=== PATIENT | female | born 1955 | race Caucasian/White ===

== ENCOUNTER 2019-11-29 14:58 | Outpatient (CLI) | payer OTHER, SELFPAY ==
--- NOTE | ~2019-11-29 | MM_ITS ---
EXAMINATION: MM screening doe BI w edilma HISTORY: Screening mammogram TECHNIQUE: Craniocaudal and mediolateral oblique 3-D tomosynthesis images were obtained and synthetic 2-D images were generated. CAD analysis was submitted and interpreted. COMPARISON: 08/18/2017, 08/15/2016, 08/06/2015 bilateral digital screening mammogram examinations BREAST PARENCHYMAL COMPOSITION: The breasts are heterogeneously dense, which may obscure small masses . FINDINGS: There is a biopsy marker on the left; history of prior benign breast biopsies. There is no evidence of suspicious mass, calcification, or architectural distortion to suggest malignancy in eith er breast. There has been no suspicious interval change. IMPRESSION: 1. No mammographic evidence of malignancy. 2. Recommend routine screening mammography in one year. BI-RADS Category 1: Negative Reviewed, dictated and finalized at location A.
== END 2019-11-29 14:59 | disposition home or self-care (01) ==
LOC: ANHIMG 15:01
PROVIDERS: PCP Family Medicine; Visit Provider Family Medicine
DX: Z12.31 Encounter for screening mammogram for malignant neoplasm of breast (principal)
CPT/HCPCS: 77063; 77067

== ENCOUNTER 2020-02-06 13:49 | Outpatient (CLI) | payer OTHER, SELFPAY ==
--- NOTE | ~2020-02-06 | DEXA_ITS ---
Bone Density Report Name: Rocio Partida Age: 65 Sex: Female Ethnicity: White Date of : 1955 Indication: postmenopausal osteoporosis; height loss; prior fracture; Referring Provider: SHWETHA GONZALEZ Study: Bone densitometry was performed. Exam Date: February 06, 2020 Accession number: [id number] Bone Density: Region BMD T-score Z-score Classification AP Spine (L1-L4) 0.774 -2.5 -0.8 Osteoporosis Femoral Neck (Left) 0.508 -3.1 -1.6 Osteoporosis Total Hip (Left) 0.593 -2.9 -1.7 Osteoporosis Total Hip Bilateral Avg 0.603 -2.8 -1.6 Osteoporosis Femoral Neck (Right) 0.526 -2.9 -1.5 Osteoporosis Total Hip (Right) 0.612 -2.7 -1.5 Osteoporosis World Health Organization criteria for BMD impression classify patients as: Normal (T-score at or above -1.0), Osteopenia (T-score between -1.0 and -2.5), or Osteoporosis (T-score at or below -2.5). 10-year Fracture Risk: FRAX not reported because: Some T-score for Spine Total or Hip Total or Femoral Neck at or below -2.5 Previous Exams: Region Exam Age BMD T-score BMD Change BMD Change Date g/cm2 vs Baseline vs Previous AP Spine(L1-L4) 02/06/2020 65 0.774 -2.5 -0.052(-6.3%)# -0.020(-2.5%) 12/22/2017 62 0.794 -2.3 -0.032(-3.8%)# -0.017(-2.1%) 11/27/2015 60 0.811 -2.1 -0.015(-1.8%)# 0.008(1.0%) 11/23/2013 58 0.803 -2.2 -0.023(-2.8%)# -0.004(-0.5%)# 11/13/2011 56 0.806 -2.2 -0.019(-2.3%)# -0.019(-2.3%)# 11/06/2009 54 0.825 -2.0 Total Hip(Left) 02/06/2020 65 0.593 -2.9 -0.030(-4.8%)# -0.060(-9.2%)* 12/22/2017 62 0.654 -2.4 0.031(4.9%)# 0.017(2.7%) 11/27/2015 60 0.636 -2.5 0.013(2.1%)# 0.010(1.6%) 11/23/2013 58 0.626 -2.6 0.003(0.6%)# -0.039(-5.8%)# 11/13/2011 56 0.665 -2.3 0.042(6.8%)# 0.042(6.8%)# 11/06/2009 54 0.623 -2.6 Total Hip(Right) 02/06/2020 65 0.612 -2.7 -0.008(-1.2%)# -0.021(-3.3%) 12/22/2017 62 0.633 -2.5 0.013(2.1%)# -0.016(-2.5%) 11/27/2015 60 0.649 -2.4 0.029(4.7%)# -0.002(-0.2%) 11/23/2013 58 0.650 -2.4 0.031(5.0%)# -0.007(-1.1%)# 11/13/2011 56 0.657 -2.3 0.038(6.1%)# 0.038(6.1%)# 11/06/2009 54 0.619 -2.6 *Denotes significance at 95% confidence level, LSC for AP Spine = 0.022 g/cm2, LSC for Total Hip = 0.027 g/cm2 Clinical Information Provided by Patient: Has had a low trauma fracture Has used the following medications: Vitamin D, Calcium Patient maximum height was 65 Menopause Age: 46 Onset of menses at age 13 N
== END 2020-02-06 13:50 | disposition home or self-care (01) ==
LOC: ANHIMG 13:51
PROVIDERS: PCP Family Medicine; Visit Provider Family Medicine
DX: M81.0 Age-related osteoporosis without current pathological fracture (principal)
CPT/HCPCS: 77080

== ENCOUNTER 2021-01-10 14:59 | Outpatient (CLI) | payer OTHER, SELFPAY ==
--- NOTE | ~2021-01-10 | MM_ITS ---
EXAMINATION: MM screening doe BI w edilma HISTORY: Screening mammogram TECHNIQUE: Craniocaudal and mediolateral oblique 3-D tomosynthesis images were obtained and synthetic 2-D images were generated. CAD analysis was submitted and interpreted. COMPARISON: 11/29/2019, 08/18/2017, 08/15/2016 bilateral digital screening mammogram examinations BREAST PARENCHYMAL COMPOSITION: The breasts are heterogeneously dense, which may obscure small masses . FINDINGS: There is a biopsy marker on the left; history of prior benign breast biopsy. There is no ev idence of suspicious mass, calcification, or architectural distortion to suggest malignancy in either breast. There has been no suspicious interval change. IMPRESSION: 1. No mammographic evidence of malignancy. 2. Recommend routine screening mammography in one year. BI-RADS Category 1: Negative Reviewed, dictated and finalized at location A.
== END 2021-01-10 15:00 | disposition home or self-care (01) ==
LOC: ANHIMG 15:01
PROVIDERS: PCP Family Medicine; Visit Provider Family Medicine
DX: Z12.31 Encounter for screening mammogram for malignant neoplasm of breast (principal)
CPT/HCPCS: 77063; 77067

== ENCOUNTER 2021-02-13 07:59 | Outpatient (RCR) | payer MEDICARE, SELFPAY ==
[2021-02-13] MEDS: diphenhydrAMINE HCl CAP 25 MG CAPSULE PO (08:40)
[2021-02-13] MEDS: FAMOTIDINE 20 MG TABLET PO (08:40)
[2021-02-13] MEDS: ACETAMINOPHEN 325 MG TABLET 650 MG PO (08:40)
[2021-02-13 08:52] VITALS: BP 116/81; PULSE 94; RESP 20; TEMP 37.7; O2SAT 97
[2021-02-13 10:08] VITALS: BP 116/78
--- NOTE | 2021-02-14 08:40 | PC.NURSE ---
Attempted to call patient and she did not answer her phone, message left for her to return the call.
== END 2021-02-13 17:00 ==
LOC: AMCINF 07:59
PROVIDERS: PCP Family Medicine; Referring Provider Family Medicine; Visit Provider Internal Medicine Hematology & Oncology
DX: U07.1 COVID-19 (principal); I10 Essential (primary) hypertension
CPT/HCPCS: A9270; M0243; Q0243

== ENCOUNTER 2021-05-15 13:44 | Outpatient (CLI) | payer MEDICARE, SELFPAY | END 2021-05-15 13:45 | disposition home or self-care (01) | PROVIDERS: PCP Family Medicine; Visit Provider Internal Medicine Cardiovascular Disease | DX: R00.2 Palpitations (principal) | CPT/HCPCS: 36415; 84443 ==

== ENCOUNTER 2021-06-24 14:06 | Outpatient (CLI) | payer MEDICARE, SELFPAY ==
--- NOTE | ~2021-06-24 | US_ITS ---
EXAMINATION: US arterial ankle brachial ind DATE: 06/24/2021 14:47 INDICATION: Asymptomatic superficial varicose vein of right lower extremity. TECHNIQUE: Segmental pressures and plethysmographic and Doppler waveforms of the brachial and lower e xtremity arteries were obtained. COMPARISON: None. FINDINGS: Right and left brachial artery pressures of 106 mm Hg and 117 mm Hg, respectively, are concordant (no rmal difference <= 30 mmHg). The right ankle-brachial index (CORWIN) is 1.23 (normal >= 0.9-1.0). The right great toe-brachial index (TBI) is 0.74 (normal >= 0.65). Arterial Doppler waveforms are at least biphasic at the ankle. The left CORWIN is 1.11. The left TBI is 0.79. Arterial Doppler waveforms are triphasic at the ankle. IMPRESSION: 1. No significant arterial occlusive disease. Reviewed, dictated and finalized at location A.
== END 2021-06-24 14:07 | disposition home or self-care (01) ==
PROVIDERS: PCP Family Medicine; Visit Provider Internal Medicine Cardiovascular Disease
DX: U07.1 COVID-19 (principal); R20.2 Paresthesia of skin; R00.2 Palpitations; I10 Essential (primary) hypertension; I73.9 Peripheral vascular disease, unspecified; I83.91 Asymptomatic varicose veins of right lower extremity; R09.89 Other specified symptoms and signs involving the circulatory and respiratory systems
CPT/HCPCS: 93922

== ENCOUNTER 2021-10-23 09:03 | Outpatient (CLI) | payer MEDICARE, SELFPAY ==
--- NOTE | ~2021-10-23 | US_ITS ---
US venous doppler LE DATE: 10/23/2021 14:44 INDICATION: Right lower extremity varicose veins, pain TECHNIQUE: Real-time and color flow imaging and Doppler analysis of the veins of the lower extremitie s COMPARISON: None FINDINGS: Right lower extremity: There is flow and compression of the lesser and greater saphenous veins bilate rally. Right greater saphenous vein: Proximal: 3.9 mm vein diameter, no reflux Mid: 3.0 mm vein diameter; 1.7 seconds reflux duration Distal colon 3.7 mm diameter, 1.9 seconds reflux duration Right lesser saphenous vein: Proximal: 4.4 mm vein diameter, 1.8 seconds reflux duration Distal colon 2.3 mm vein diameter, 1.4 seconds reflux duration Left lower extremity: Greater saphenous vein: Proximal: 5.3 mm vein diameter, 0.83 seconds reflux duration Mid: 3.2 mm vein diameter, 0.72 seconds reflux duration Distal colon 2.6 mm vein diameter, 1.6 seconds reflux duration Left lesser saphenous vein: Proximal: 4.5 mm vein diameter, 0.9 seconds reflux duration Distal: 2.4 mm vein diameter, 1.75 seconds reflux duration IMPRESSION: No evidence of thrombosis of left or right greater or lesser saphenous veins Vein diameter and reflux duration as indicated above Reviewed, dictated and finalized at Location A. Reviewed, dictated and finalized at location B. IMPRESSION: No evidence of thrombosis of left or right greater or lesser saphen ous veins Vein diameter and reflux duration as indicated above
== END 2021-10-23 09:04 | disposition home or self-care (01) ==
PROVIDERS: PCP Family Medicine; Visit Provider Nurse Practitioner Adult Health
DX: I83.811 Varicose veins of right lower extremity with pain (principal)
CPT/HCPCS: 93970

== ENCOUNTER 2022-04-10 00:55 | Day surgery (SDC) | payer MEDICARE, SELFPAY ==
[2022-03-27 12:44] VITALS: BMI 18.9
[2022-04-10 10:39] VITALS: BP 125/89; PULSE 75; RESP 16; TEMP 36.4; O2SAT 98; BMI 19.0
--- NOTE | 2022-04-10 10:46 | PM.HPGS ---
History of Present Illness History of Present Illness Consent: Risks, benefits, and alternatives have been discussed and questions answered. Patient agrees to proceed with procedure. Chief complaint: neoplasm screening Narrative: Rocio Partida is a 67 year old female Presents for screening colonoscopy. Patient's current weight appetite and bowel movements are normal. Patient denies abdominal pain. She has had no bleeding. Family history is noncontributory previous colonoscopy for screening 2010 was unremarkable. Review of Systems Review of Systems: Review of systems noncontributory. [facility] Past Medical History Medical History (Updated 04/10/22 @ 10:47 by Pb Weinstein MD) Abnormal laboratory test result Essential (primary) hypertension Generalized anxiety disorder Hyperlipidemia, unspecified Insomnia, unspecified Major depressive disorder, recurrent, moderate Neutropenia, unspecified Osteoporosis Pure hypercholesterolemia, unspecified Surgical History Surgical History (Updated 03/24/22 @ 10:17 by Soniya Cisse [facility]) H/O laparoscopy Social History Social History Smoking status: Never smoker Living arrangements: with family Spiritual care concerns: No Meds Home Medications and Allergies Home Medications Medication Instructions Recorded Confirmed Type calcium citrate 250 mg 1,200 tablet PO DAILY 03/24/22 04/10/22 History calcium-vitamin D3 5 mcg (200 unit) tablet calcium carbonate 600 mg-vitamin 2 tablet PO DAILY 03/27/22 04/10/22 History D3 5 mcg (200 unit) tablet glucosamine sulf dipot 1 cap PO DAILY 03/27/22 04/10/22 History chlr,msm,chond 550 mg-C 30 mg-sanjay 1 mg capsule (Glucosamine Chondroitin) metoprolol succinate 25 mg 37.5 mg PO DAILY 03/27/22 04/10/22 History tablet,extended release 24 hr multivitamin with minerals-folic 1 tablet PO DAILY 03/27/22 04/10/22 History acid 0.4 mg tablet sertraline 50 mg tablet 75 mg PO DAILY 03/27/22 04/10/22 History Allergies Allergy/AdvReac Type Severity Reaction Status Date / Time No Known Allergies Allergy Verified 04/10/22 10:38 Vital Signs Vital Signs - 24 hr 04/10/22 10:39 Temperature 97.6 F Pulse Rate 75 Respiratory Rate 16 Blood Pressure 125/89 Pulse Oximetry 98 Oxygen Delivery Room Air Exam Narrative: Physical exam reveals patient to be alert. Vital signs stable. HEENT exam is unremarkable. Patient is anicteric. Lungs are clear to auscultation and percussion. Heart is without murmur or extra sounds. Abdomen bowel sounds are present soft nontender with no organomegaly. Digital external rectal exam is normal. Assessment and Plan Assessment and plan (1) Encounter for screening colonoscopy: Code(s): Z12.11 - Encounter for screening for malignant neoplasm of colon Status: Acute Assessment and Plan: Patient presents for screening colonoscopy. She appears to be at average risk for colon polyps. Further recommendations may be given after endoscopy.
[2022-04-10] MEDS: LACTATED RINGERS 1,000 ML 150 ML IV CONT (10:50)
--- NOTE | 2022-04-10 11:17 | P.PNAN_ITS ---
Anes - Initial Pre Proc Eval Procedure: Operation Date: 04/10/22 11:30 Proposed Procedures p Screening Colonoscopy - Pb Weinstein MD Date/Time: 04/10/22 11:17 Surgeon: Pb Weinstein MD Pre Op Diagnosis: neoplasm screening Patient Data Age: 67 Gender: F Height: 1.63 m Weight: 50.2 kg Last Vital Signs Temp 97.6 F 04/10/22 10:39 Pulse 75 04/10/22 10:39 Resp 16 04/10/22 10:39 BP 125/89 04/10/22 10:39 Pulse Ox 98 04/10/22 10:39 O2 Del Method Room Air 04/10/22 10:39 Allergies Allergy/AdvReac Type Severity Reaction Status Date / Time No Known Allergies Allergy Verified 04/10/22 10:38 Home Medications Medication Instructions Recorded Confirmed Type calcium citrate 250 mg 1,200 tablet PO DAILY 03/24/22 04/10/22 History calcium-vitamin D3 5 mcg (200 unit) tablet calcium carbonate 600 mg-vitamin 2 tablet PO DAILY 03/27/22 04/10/22 History D3 5 mcg (200 unit) tablet glucosamine sulf dipot 1 cap PO DAILY 03/27/22 04/10/22 History chlr,msm,chond 550 mg-C 30 mg-sanjay 1 mg capsule (Glucosamine Chondroitin) metoprolol succinate 25 mg 37.5 mg PO DAILY 03/27/22 04/10/22 History tablet,extended release 24 hr multivitamin with minerals-folic 1 tablet PO DAILY 03/27/22 04/10/22 History acid 0.4 mg tablet sertraline 50 mg tablet 75 mg PO DAILY 03/27/22 04/10/22 History Patient hx anesthesia problems: none Family hx anesthesia problems: none Results Review: All pre-operative results and documents have been reviewed as part of the pre- operative evaluation. [facility] Past Medical History Medical History (Updated 04/10/22 @ 10:47 by Pb Weinstein MD) Abnormal laboratory test result Essential (primary) hypertension Generalized anxiety disorder Hyperlipidemia, unspecified Insomnia, unspecified Major depressive disorder, recurrent, moderate Neutropenia, unspecified Osteoporosis Pure hypercholesterolemia, unspecified Surgical History Surgical History (Updated 03/24/22 @ 10:17 by Soniya Cisse [facility]) H/O laparoscopy Social History Social History Smoking status: Never smoker Living arrangements: with family Spiritual care concerns: No Anes - Eval Final PreProcedure Day of Procedure 04/10/22 11:17 Patient weight: normal Heart: regular rate and rhythm Lungs: clear to auscultation Airway: Mallampati scale class II Neurological: alert and oriented Last oral intake: >/= 8 hours ASA classification: III Emergent: no Anesthetic plan: proceed Anesthesia type and monitoring: general GIVS and standard monitoring Results Review: All pre-operative results and documents have been reviewed as part of the pre- operative evaluation. Informed Consent: The patient's anesthetic plan and its attendant risks and benefits were discussed with the patient/family/POA. Questions were solicited and answers provided to the satisfaction of the patient/family/POA.
[2022-04-10] MEDS: SIMETHICONE ORAL SUSPENSION 20 MG/0.3 ML 30 ML BOTTLE 0.6 ML IRRIGATION (11:23)
[2022-04-10 11:30] VITALS: BP 119/75; PULSE 76; RESP 18; O2SAT 99
[2022-04-10 11:40] VITALS: BP 116/80; PULSE 75; RESP 18; O2SAT 100
[2022-04-10 11:50] VITALS: BP 113/85; PULSE 64; RESP 20; O2SAT 98
== END 2022-04-10 11:54 | disposition home or self-care (01) ==
PROVIDERS: PCP Family Medicine; Visit Provider Internal Medicine Gastroenterology
PROC: 0DJD8ZZ Inspection of Lower Intestinal Tract, Via Natural or Artificial Opening Endoscopic (ICD-10-PCS; CPT 45378; principal; 2022-04-10 11:30)
DX: Z12.11 Encounter for screening for malignant neoplasm of colon (principal); K64.8 Other hemorrhoids; I10 Essential (primary) hypertension; F33.1 Major depressive disorder, recurrent, moderate; F41.1 Generalized anxiety disorder; E78.00 Pure hypercholesterolemia, unspecified; M81.0 Age-related osteoporosis without current pathological fracture
CPT/HCPCS: G0121; J2704; J7120

== ENCOUNTER 2022-05-22 12:45 | Outpatient (CLI) | payer MEDICARE, SELFPAY ==
--- NOTE | ~2022-05-22 | US_ITS ---
US venous doppler LE DATE: 05/22/2022 13:42 INDICATION: Asymptomatic varicose veins TECHNIQUE: Real-time and color flow imaging and Doppler analysis of the deep veins of the right lower extremity COMPARISON: None FINDINGS: The greater saphenous vein is patent. There is spontaneous and phasic flow and normal augme ntation and color flow signal and normal compression of the deep veins of the right lower extremity. IMPRESSION: No evidence of deep venous thrombosis of the right lower extremity Reviewed, dictated and finalized at Location A. Reviewed, dictated and finalized at location L. ECTIONS LIEUTENANT
== END 2022-05-22 12:46 | disposition home or self-care (01) ==
PROVIDERS: PCP Family Medicine; Visit Provider Internal Medicine Cardiovascular Disease
DX: I83.91 Asymptomatic varicose veins of right lower extremity (principal); I83.811 Varicose veins of right lower extremity with pain
CPT/HCPCS: 93971

== ENCOUNTER 2022-06-09 14:56 | Outpatient (CLI) | payer MEDICARE, SELFPAY ==
--- NOTE | ~2022-06-09 | DEXA_ITS ---
Bone Density Report Name: AL SUAREZ Age: 67 Sex: Female Ethnicity: White Date of : 1955 Indication: postmenopausal osteoporosis; prior fracture; Referring Provider: SHWETHA GONZALEZ Study: Bone densitometry was performed. Exam Date: June 09, 2022 Accession number: [id number] Bone Density: Region BMD T-score Z-score Classification AP Spine(L1-L4) 0.799 -2.3 -0.4 Osteopenia Femoral Neck (Left) 0.542 -2.8 -1.2 Osteoporosis Total Hip (Left) 0.663 -2.3 -1.0 Osteopenia Femoral Neck (Right) 0.588 -2.3 -0.8 Osteopenia Total Hip (Right) 0.667 -2.3 -1.0 Osteopenia Total Hip Mean 0.665 -2.3 -1.0 Osteopenia World Health Organization criteria for BMD impression classify patients as: Normal (T-score at or above -1.0), Osteopenia (T-score between -1.0 and -2.5), or Osteoporosis (T-score at or below -2.5). 10-year Fracture Risk: FRAX not reported because: Some T-score for Spine Total or Hip Total or Femoral Neck at or below -2.5 Previous Exams: Region Exam Age BMD T-score BMD Change BMD Change Date g/cm2 vs Baseline vs Previous AP Spine (L1-L4) 06/09/2022 67 0.799 -2.3 -0.004 (-0.5%) 0.025 (3.3%)* 02/06/2020 65 0.774 -2.5 -0.029 (-3.6%) -0.020 (-2.5%) 12/22/2017 62 0.794 -2.3 -0.009 (-1.1%) -0.017 (-2.1%) 11/27/2015 60 0.811 -2.1 0.008 (1.0%) 0.008 (1.0%) 11/23/2013 58 0.803 -2.2 Total Hip(Left) 06/09/2022 67 0.663 -2.3 0.037 (5.9%)* 0.070 (11.8%)* 02/06/2020 65 0.593 -2.9 -0.033 (-5.3%) -0.060 (-9.2%) 12/22/2017 62 0.654 -2.4 0.027 (4.3%) 0.017 (2.7%) 11/27/2015 60 0.636 -2.5 0.010 (1.6%) 0.010 (1.6%) 11/23/2013 58 0.626 -2.6 Total Hip(Right) 06/09/2022 67 0.667 -2.3 0.017 (2.6%) 0.055 (9.0%)* 02/06/2020 65 0.612 -2.7 -0.038 (-5.9%) -0.021 (-3.3%) 12/22/2017 62 0.633 -2.5 -0.018 (-2.7%) -0.016 (-2.5%) 11/27/2015 60 0.649 -2.4 -0.002 (-0.2%) -0.002 (-0.2%) 11/23/2013 58 0.650 -2.4 *Denotes significance at 95% confidence level, LSC for AP Spine = 0.022 g/cm2, LSC for Total Hip = 0.027 g/cm2 Clinical Information Provided by Patient: Has had a low trauma fracture Has used the following medications: Vitamin D, Calcium Patient maximum height was 64 Menopause Age: 46 Onset of menses at age 13 Number of children 2 Impression: The patient has established osteoporosis, based on the Left Femoral Neck T-score and the existence of a p
== END 2022-06-09 14:57 | disposition home or self-care (01) ==
PROVIDERS: PCP Family Medicine; Visit Provider Family Medicine
DX: M81.0 Age-related osteoporosis without current pathological fracture (principal); M85.88 Other specified disorders of bone density and structure, other site; M85.852 Other specified disorders of bone density and structure, left thigh; M85.851 Other specified disorders of bone density and structure, right thigh
CPT/HCPCS: 77080

== ENCOUNTER 2022-06-19 10:42 | Outpatient (CLI) | payer MEDICARE, SELFPAY ==
[2022-06-19 11:36] LABS: Anion Gap 4 mmol/L (8-16); Blood Urea Nitrogen 14 mg/dL (7-17); Calcium 8.8 mg/dL (8.4-10.2); Carbon Dioxide 32 mmol/L (22-30); Chloride 99 mmol/L (98-107); Cholesterol 249 mg/dL (0-200); Estimated Glomerular Filt Rate > 60; Glucose 89 mg/dL (65-110); HDL Direct 75 mg/dL; Potassium 4.2 mmol/L (3.4-5.0); Sodium 135 mmol/L (137-145); Triglycerides 79 mg/dL (<150)
[2022-06-19 11:46] LABS: LDL Cholesterol Direct 126 mg/dL
[2022-06-24 07:46] LABS: Lipoprotein A 129 nmol/L (<75)
== END 2022-06-19 10:43 | disposition home or self-care (01) ==
PROVIDERS: PCP Family Medicine; Visit Provider Nurse Practitioner Adult Health
DX: E78.2 Mixed hyperlipidemia (principal)
CPT/HCPCS: 36415; 80048; 80061; 83695

== ENCOUNTER 2023-07-04 16:59 | Emergency (ER) | payer MEDICARE, SELFPAY ==
--- NOTE | 2023-07-04 17:03 | ED.SKABFB ---
HPI - Skin/Abscess/Foreign Bdy General Chief complaint: Skin/Abscess/Foreign Body Stated complaint: Irritation and Swelling Forehead Lt Side Time Seen by Provider: 07/04/23 17:03 Source: patient Mode of arrival: ambulatory Limitations: no limitations History of Present Illness HPI narrative: 68 yo F presents with concern for spider bite to forehead. Woke up two days ago with a red bump. Staes bump was sore. Bigger the next day with some swelling to L eyebrown and L upper eyelid. Today had two scabs to center for red bump that she thought were maybe a spider bite. Has been doing some online reading and is concernd for brown recluse. Afebrile. All systems reviewed and negative except as noted above. Related Data Home Medications Medication Instructions Recorded Confirmed calcium citrate 250 mg 1,200 tablet PO DAILY 03/24/22 07/04/23 calcium-vitamin D3 5 mcg (200 unit) tablet glucosamine sulf dipot 1 cap PO DAILY 03/27/22 07/04/23 chlr,msm,chond 550 mg-C 30 mg-sanjay 1 mg capsule (Glucosamine Chondroitin) multivitamin with minerals-folic 1 tablet PO DAILY 03/27/22 07/04/23 acid 0.4 mg tablet omega 4-bqk-lbh-fish oil 300 1 cap PO DAILY 05/08/22 07/04/23 mg-1,000 mg capsule (Fish Oil) Allergies Allergy/AdvReac Type Severity Reaction Status Date / Time No Known Allergies Allergy Verified 07/04/23 17:04 Review of Systems Review of Systems: CONSTITUTIONAL: Denies fever, chills, or sweats. EYES: Denies visual changes, redness, or discharge. ENT: Denies rhinorrhea, congestion, sore throat, or otalgia. CARDIOVASCULAR: Denies chest pain, palpitations, or edema. RESPIRATORY: Denies cough or dyspnea. GASTROINTESTINAL: Denies abdominal pain, nausea, vomiting, or diarrhea. GENITOURINARY: Denies dysuria or hematuria. SKIN: Denies rash. reports red bump to L side of forehead with itching and soreness. MUSCULOSKELETAL: Denies back pain, joint pain, or myalgia. NEUROLOGIC: Denies headache, numbness, or weakness. PSYCHIATRIC: Denies anxiety or depression. All other systems reviewed are negative, except as documented in HPI. PMFSH Past Medical History Medical History (Updated 07/04/23 @ 17:20 by Brunilda Cohen NP) Essential (primary) hypertension Generalized anxiety disorder Hypercholesteremia Insomnia, unspecified Major depressive disorder, recurrent, moderate Neutropenia, unspecified Osteoporosis Surgical History Surgical History H/O laparoscopy Social History Social History Smoking status: Never smoker Second hand tobacco smoke exposure: No Alcohol intake: never Substance use: never Substance use type: does not use Lack of Transportation: No Lack of Food: Never True Current Housing: I Have Housing Concerned About Future Housing: No Difficulty Paying Gas/Electric Bills: No Difficulty Paying for Meds: No Currently Unemployed: YES Living arrangements: with family Occupation/Education: retired Gender identity (if verbalized by the patient): Female Sexual Orientation (if Verbalized by the Patient): Straight or Heterosexual Spiritual care concerns: No Comments At time of signature, agree with nursing past medical, surgical, social and family history. There is no relevant family history pertinent to the presenting complaint. Exam Narrative: GENERAL: This is a well-nourished, well-developed patient, in no apparent distress. HEAD: normocephalic, atraumatic. EYES: PERRL. Sclera clear/white. Vision is grossly intact. EARS: External ears normal NOSE: External nose normal NECK: Neck supple, non-tender without lymphadenopathy, masses or thyromegaly. CARDIOVASCULAR: Regular rate and rhythm without murmurs, gallops, or rubs. RESPIRATORY: Clear to auscultation. Breath sounds equal bilaterally. No wheezes, rales, or rhonchi. SKIN: warm, Dry, intact with no suspicious lesions or rash, good texture and turgor. 2 x1cm insect bite to L side of forehead. erythematous and swollen with scab to center. mild swelling. no fluctuance. no necrosis. NEURO: awake, alert, and oriented to person, place and time. There were no obvious focal neurologic abnormalities. EXTREMITIES: No joint tenderness, effusion, or edema noted. Course Course Level of Care: Express Care Visit Vital Signs Vital signs: Vital Signs Temperature 36.6 C 07/04/23 17:08 Pulse Rate 83 07/04/23 17:08 Respiratory Rate 16 04/20/24 17:08 Blood Pressure 162/86 H 07/04/23 17:08 Pulse Oximetry 99 07/04/23 17:08 Oxygen Delivery Room Air 07/04/23 17:08 Temperature 36.6 C 07/04/23 17:08 Pulse Rate 83 07/04/23 17:08 Respiratory Rate 16 07/04/23 17:08 Blood Pressure 162/86 H 07/04/23 17:08 Pulse Oximetry 99 07/04/23 17:08 Oxygen Delivery Room Air 07/04/23 17:08 Reviewed MDM - Skin/Abscess/Foreign Bdy MDM Narrative Medical decision making narrative: Patient is aware of diagnosis, understands and agrees to treatment plan. Anticipatory guidance given. Patient agrees to follow-up as directed and is aware of reasons to seek care at the emergency department. Portions of this record may have been created with voice recognition software pt well appearing. nontoxic. no necrosis or fluctuance. Will treat with abx. Discharge Plan Discharge Clinical Impression: Insect bite of forehead Qualifiers: Encounter type: initial encounter Qualified Code(s): S00.86XA - Insect bite (nonvenomous) of other part of head, initial encounter Patient Disposition: Home, Self-Care Condition: Stable Instructions: Antibiotic Form, Insect Bite or Sting (ED) Additional Instructions: Take antibiotic as prescribed until gone. Take tylenol or ibuprofen as needed for pain. Take zyrtec or benadryl as needed for itching. Do not apply steroid cream to the face. Go to the ER if you have fever, worsening of redness, swelling or pain. Prescriptions: New doxycycline hyclate 100 mg capsule 100 mg PO BID 7 Days Qty: 14 0RF No Action omega 3-bxy-skp-fish oil [Fish Oil] 300-1,000 mg capsule 1 cap PO DAILY Glucosamine Chondroitin 550-30-1 mg Capsule 1 cap PO DAILY multivit with min-folic acid [Adult One Daily Multivitamin] 0.4 mg Tablet 1 tablet PO DAILY calcium citrate-vitamin D3 250 mg-5 mcg (200 unit) tablet 1,200 tablet PO DAILY Follow-up/Referrals: Layo Gonzalez MD [Primary Care Provider] - Time of Disposition: 17:21
[2023-07-04 17:08] VITALS: BP 162/86; PULSE 83; RESP 16; TEMP 36.6; O2SAT 99
== END 2023-07-04 17:27 | disposition home or self-care (01) ==
PROVIDERS: Emergency Provider Nurse Practitioner Family; PCP Family Medicine
DX: S00.86XA Insect bite (nonvenomous) of other part of head, initial encounter (principal); W57.XXXA Bitten or stung by nonvenomous insect and other nonvenomous arthropods, initial encounter; I10 Essential (primary) hypertension; E78.00 Pure hypercholesterolemia, unspecified; M81.0 Age-related osteoporosis without current pathological fracture
CPT/HCPCS: 99213; G0463

== ENCOUNTER 2023-07-05 10:43 | Emergency (ER) | payer MEDICARE, SELFPAY ==
[2023-07-05 10:46] VITALS: BP 149/104; PULSE 83; RESP 20; TEMP 36.6; O2SAT 100
[2023-07-05 12:05] VITALS: BP 134/82; PULSE 78; RESP 16; TEMP 36.9; O2SAT 99
--- NOTE | 2023-07-05 12:58 | ED.GENADULT ---
HPI - General Adult General Chief complaint: Skin/Abscess/Foreign Body Stated complaint: lump on forehead with eye pain Time Seen by Provider: 07/05/23 11:13 History of Present Illness HPI narrative: Rocio Partida is a 68 y/o female who presents today with reports of having a rash that started above her left eye about thursday/thursday she went to an and was started on antibiotic but rash has now gone to her upper left eye lid and to the corner of her left eye. She states area is painful and a little itchy/ denies fever/chills denies vision changes. Related Data Home Medications Medication Instructions Recorded Confirmed calcium citrate 250 mg 1,200 tablet PO DAILY 03/24/22 07/04/23 calcium-vitamin D3 5 mcg (200 unit) tablet glucosamine sulf dipot 1 cap PO DAILY 03/27/22 07/04/23 chlr,msm,chond 550 mg-C 30 mg-sanjay 1 mg capsule (Glucosamine Chondroitin) multivitamin with minerals-folic 1 tablet PO DAILY 03/27/22 07/04/23 acid 0.4 mg tablet omega 7-crt-yaw-fish oil 300 1 cap PO DAILY 05/08/22 07/04/23 mg-1,000 mg capsule (Fish Oil) Allergies Allergy/AdvReac Type Severity Reaction Status Date / Time No Known Allergies Allergy Verified 07/05/23 10:51 Review of Systems Review of Systems: All systems reviewed & are unremarkable except as noted in HPI and below PMFSH Past Medical History Medical History Essential (primary) hypertension Generalized anxiety disorder Hypercholesteremia Insomnia, unspecified Major depressive disorder, recurrent, moderate Neutropenia, unspecified Osteoporosis Surgical History Surgical History H/O laparoscopy Social History Social History Smoking status: Never smoker Second hand tobacco smoke exposure: No Alcohol intake: never Substance use: never Substance use type: does not use Lack of Transportation: No Lack of Food: Never True Current Housing: I Have Housing Concerned About Future Housing: No Difficulty Paying Gas/Electric Bills: No Difficulty Paying for Meds: No Currently Unemployed: YES Living arrangements: with family Occupation/Education: retired Gender identity (if verbalized by the patient): Female Sexual Orientation (if Verbalized by the Patient): Straight or Heterosexual Spiritual care concerns: No Exam Narrative: GENERAL: Well-appearing, well-nourished, and in no acute distress. HEAD: Normocephalic, atraumatic. EYES: PERRLA and EOMI. Left eye slight injected wtih pink to the corner of her left side of slcera ENT: Nares clear, no rhinorrhea or epistaxis. Mucous membranes moist. Oropharynx without tonsillar hypertrophy exudate or other lesions. TMs non bulging pearly farfan NECK: Supple. No adenopathy or masses. No carotid bruits or JVD CHEST: Clear to auscultation. No respiratory distress. No wheezes rales or rhonchi HEART: Regular rate and rhythm. No murmur heard. Normal peripheral pulses. ABDOMEN: Soft, nontender, nondistended, normal active bowel sounds. EXTREMITIES: Normal range of motion. No edema. SKIN: Warm, dry, no rash. NEURO: No focal deficits. Alert and oriented x3. PSYCH: Normal mood and affect. Course Vital Signs Vital signs: Vital Signs Temperature 36.6 C 07/05/23 10:46 Pulse Rate 83 07/05/23 10:46 Respiratory Rate 20 07/05/23 10:46 Blood Pressure 149/104 H 07/05/23 10:46 Pulse Oximetry 100 07/05/23 10:46 Oxygen Delivery Room Air 07/05/23 10:46 Temperature 36.6 C 07/05/23 10:46 Pulse Rate 83 07/05/23 10:46 Respiratory Rate 20 07/05/23 10:46 Blood Pressure 149/104 H 07/05/23 10:46 Pulse Oximetry 100 07/05/23 10:46 Oxygen Delivery Room Air 07/05/23 10:46 Medical Decision Making MDM Narrative Medical decision making narrative: with pt's presentation of the painful rash un
[2023-07-05] MEDS: valACYclovir HCL 500 MG TABLET 1000 MG PO (13:29)
[2023-07-05 13:35] VITALS: BP 122/71; PULSE 71; RESP 16; O2SAT 100
== END 2023-07-05 13:36 | disposition home or self-care (01) ==
PROVIDERS: Emergency Provider Nurse Practitioner Family; PCP Family Medicine
DX: B02.31 Zoster conjunctivitis (principal); I10 Essential (primary) hypertension; E78.00 Pure hypercholesterolemia, unspecified; M81.0 Age-related osteoporosis without current pathological fracture
CPT/HCPCS: 99283; A9270

== ENCOUNTER 2024-11-17 12:58 | Outpatient (CLI) | payer MEDICARE, SELFPAY ==
--- NOTE | ~2024-11-17 | MM_ITS ---
EXAMINATION: MM screening [facility] BI w edilma HISTORY: Screening TECHNIQUE: Craniocaudal and mediolateral oblique 3-D tomosynthesis images were obtained and synthetic 2-D images were generated. CAD analysis was submitted and interpreted. COMPARISON: Mammograms from 01/10/2021 and 11/29/2019 BREAST PARENCHYMAL COMPOSITION: The breasts are extremely dense, which lowers the sensitivity of mammography. FINDINGS: There is no evidence of suspicious mass, calcification, or architectural distortion to suggest malignancy in either breast. There has been no significant interval change. IMPRESSION: 1. No mammographic evidence of malignancy. Recommend routine screening mammography in one year. BI-RADS Category 1: Negative Reviewed, dictated and finalized at location Q. IMPRESSION: 1. No mammographic evidence of malignancy. Recommend routine screening mammogra phy in one year. BI-RADS Category 1: Negative
--- OUTSIDE RECORDS SUMMARY | 2024-11-17 13:10 | XMS_ITS | Patient Health Record ---
Author Organization [facility] Address [facility] [address] Care Team Providers Care Hand Embroiderer Name Role Phone Artur Villalobos Primary Care Provider Reason For Referral No Information Plan Of Treatment No Information
--- OUTSIDE RECORDS SUMMARY | 2024-11-17 13:10 | XMS_ITS | Patient Health Record ---
Author Organization [facility] Address [address] [place] [address] Care Team Providers Care Manager Apple Name Role Phone Sesar Miguel Unavailable [phone] Reason For Referral No Information Medications Medication SIG (Take, Route, Frequency, Duration) Notes Start Date End Date Status Metoprolol Succinate *Pick strength-form from [employer] for eRX* 09/20/2021 Active ID Now COVID-19 Kit In Vitro *Reorder fro m [employer] for eRx and Interaction Alerts* 09/20/2021 Active Sertraline HCl 50 MG Tablet Oral 09/20/2021 Active Social History Social History Additional Details Category Social Info Options Details Migrated Social History Migrated Social History Alcohol Intake: None 05/10/2021,Tobacco Years: Never smoker 05/10/2021 Plan Of Treatment No Information Insurance Providers Payer Name Payer Address Payer Phone Subscriber Number Group Number Insured Name Patient Relationship to Insured Coverage Start Date Coverage End Date [facility] Medicare Replacement/ Advantage - Ppo [address] [address] [place] [address] [id number] AL SUAREZ Self - patient is the insured Medical (General) History Surgical History Surgery Date(Month/Year) Endometr ablate thermal ([id number])
--- OUTSIDE RECORDS SUMMARY | 2024-11-17 13:10 | XMS_ITS | Clinical Summary ---
Author Organization [facility] Care Team Providers Care House Supervisor Name Role Phone Layo Gonzalez MD Primary Care Provider [phone] Allergies No known active allergies Medications sertraline (ZOLOFT) 25 mg tablet Take 3 tablets (75 mg total) by mouth daily 07/10/2021 Active metoprolol XL (TOPROL-XL) 25 mg extended release tablet Take 1 tablet (25 mg total) by mouth daily 08/10/2021 Active fish oil-dha-epa 1,200-144-216 mg capsule Take by mouth Active glucosamine sulfate 500 mg tablet Take by mouth Active yokzkjlr49-lsvr -Lmfolate-algal 27 mg iron-1.13 mg-581.92 mg capsule Take by mouth Active Active Problems Problem Noted Date Diagnosed Date 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 06/30/2018 Surgical History Surgery Date Site/Laterality Comments LAPAROSCOPY Medical History Medical History Date Comments Anxiety Hypertension Leg pain, right Family History Medical History Relation Name Comments Alzheimer's disease Father Stroke Maternal Grandmother Arrhythmia Mother Relation Name Status Comments Father Maternal Grandmother Mother Social History Tobacco Use Types Packs/Day Years Used Date Smoking Tobacco: Never Tobacco Cessation:Counseling Given: Not Answered Alcohol Use Standard Drinks/Week Comments Not Currently 0 (1 standard drink = 0.6 oz pur e alcohol) Comments Unknown Sex and Gender Information Value Date Recorded Sex Assigned at Not on file Legal Sex Female 11:24 AM CDT Gender Identity Not on file Sexual Orientation Not on file Obstetrics History Last Filed Vital Signs Vital Sign Reading Time Taken Comments Blood Pressure 118/72 12/02/2023 1:49 PM CDT Pulse 87 12/02/2023 1:49 PM CDT Temperature 36.7 C (98.1 F) 06/30/2018 2:43 PM CDT Respiratory Rate - - Oxygen Saturation 99% 12/02/2023 1:49 PM CDT Inhaled Oxygen Concentration - - Weight 49.9 kg (110 lb) 12/02/2023 1:49 PM CDT Height 162.6 cm (5' 4) 12/02/2023 1:49 PM CDT Body Mass Index 18.88 12/02/2023 1:49 PM CDT Plan of Treatment Health Maintenance Due Date Last Done Comments Breast Cancer Screening-Mammogram 1955 Colon Cancer Screening-Colonoscopy 1955 Depression Screening 1956 Fall Risk Assessment 1955 Hepatitis C Screening 1955 Osteoporosis Screening-Bone Density Scan 1956 DTaP/Tdap/Td Vaccine (1 - Tdap) 01/17/1967 Hepatitis B Screening 01/17/1974 Pneumococcal vaccine 65+ (1 of 1 - PCV) 01/17/2006 Zoster Vaccine (1 of 2) 01/17/2006 Well Visit 65+ 01/17/2021 Influenza Vaccine (#1) 2024 Insurance [facility] AETNA [facility] Care Teams House Supervisor Relationship Specialty Start Date End Date Layo Gonzalez MD [address] [place] [id number] PCP - General Family Medicine 06/30/18
--- OUTSIDE RECORDS SUMMARY | 2024-11-17 13:10 | XMS_ITS | Encounter Summary ---
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, including hip Social History Tobacco Use Types Packs/Day Years Used Date Smoking Tobacco: Never Assessed Comments Unknown Sex and Gender Information Value Date Recorded Sex Assigned at Not on file Legal Sex Female 4:36 PM CDT Gender Identity Not on file Sexual Orientation Not on file documented as of this encounter Plan of Treatment Not on file documented as of this encounter Procedures Procedure Name Priority Date/Time Associated Diagnosis Comments DERMATOPATHOLOGY Routine 09/09/2023 3:33 AM CDT 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 The specimen consists of a shave biopsy measuring 7x5x2 mm. Jar 0. 4:35 PM CDT DERMATOPATHOLOGY LABORATORY Microscopic Description Specimen A. SKIN, right proximal pretibial region: There is a cup-shaped invagination filled with cornified material and surrounded by slight epidermal hyperplasia in association with acantholytic dyskeratosis. 4:35 PM CDT DERMATOPATHOLOGY LABORATORY Disclaimer An external and internal positive and negative controls are appropriate for the histochemical, immunohistochemical and immunofluorescence stain(s) in this case (if any), except where stated explicitly. The performance characteristics of the stain(s) cited in this report were developed and its performance characteristic determined by the Dermatopathology Laboratory at [facility], directed by Dr. Roxanna Bell. These tests need not be, and therefore are not, approved by the [place] Food and Drug Administration. The tests are used for clinical purposes. 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
--- OUTSIDE RECORDS SUMMARY | 2024-11-17 13:10 | XMS_ITS | Clinical Summary ---
Author Organization [facility] Address [address] [place] [address] Care Team Providers Care Circus Laborer Name Role Phone Unavailable Primary Care Provider Unavailabl e Source Comments [facility],non-owned Affiliates and Associated Physician Practices is amultiple site organization consisting of ambulatory clinics and hospital sitesin [place], [place], [place] and [place]. This disclosure is being madepursuant to the Care Everywhere program and may not contain all information available regarding this patient. Last updated 17.[facility] Social History Tobacco Use Types Packs/Day Years Used Date Smoking Tobacco: Never Assessed Comments Unknown Sex and Gender Information Value Date Recorded Sex Assigned at Not on file Legal Sex Female 4:36 PM CDT Gender Identity Not on file Sexual Orientation Not on file Plan of Treatment Health Maintenance Due Date Last Done Comments BONE DENSITY TESTING 1955 COLOGUARD (AGES 45-75) - COL ON CA SCREENING 1956 COLON MONITORING 1956 COLONOSCOPY - COLON CA SCREENING 1956 CT COLONOGRAPHY - COLON CA SCREENING 1956 Colorectal Cancer Screening 1956 FIT - COLON CA SCREENING 1956 FLEX SIG - COLON CA SCREENING 1956 LIPID TESTING 1956 MAMMOGRAM 1956 HEPATITIS C SCREENING 01/13/1974 DTAP/TDAP/TD VACCINES (1 - Tdap) 01/17/1975 PNEUMOCOCCAL VACCINE 50+ (1 of 1 - PCV) 01/17/2006 ZOSTER VACCINE (1 of 2) 01/17/2006 COVID-19 VACCINE ( - 2023-2 5 season) 2023 DEPRESSION SCREENING 03/16/2024 MEDICARE AWV CALENDAR YEAR 2024 INFLUENZA VACCINE (#1) 2024 Respiratory Syncytial Virus (RSV) Vaccine Pt: or over 60 yrs (1 - 1-dose 75+ series) 01/17/2031 HEPATITIS B VACCINE Aged Out No longe r eligible based on patient's age to complete this topic HIB VACCINE Aged Out No longer eligi ble based on patient's age to complete this topic HPV VACCINE Aged Out No longer eligi ble based on patient's age to complete this topic MENINGOCOCCAL (Group B) VACC INE SHARED DECISION-MAKING Aged Out No longer eligibl e based on patient's age to complete this topic MENINGOCOCCAL GROUPS A/C/Y/W VACCINE Aged Out No longer eligible b ased on patient's age to complete this topic Insurance [employer] MEDICARE ADV
== END 2024-11-17 12:59 | disposition home or self-care (01) ==
LOC: CHSIMG 13:00
PROVIDERS: PCP Family Medicine; Visit Provider Family Medicine
DX: Z12.31 Encounter for screening mammogram for malignant neoplasm of breast (principal)
CPT/HCPCS: 77063; 77067